=== PATIENT | female | born 1980 | race Caucasian/White ===

== ENCOUNTER 2021-09-01 12:08 | Outpatient (CLI) | payer MEDICAID, SELFPAY ==
[2021-09-01 12:27] VITALS: BP 103/71; PULSE 70; RESP 16; TEMP 37; O2SAT 97; BMI 36.6
[2021-09-01] MEDS: 0.9% Saline Lock 10 ML Syringe IV (12:29)
[2021-09-01 13:28] VITALS: BP 102/71; PULSE 55; RESP 16; TEMP 36.9; O2SAT 97
[2021-09-01 14:23] VITALS: BP 115/76; PULSE 54; RESP 16; TEMP 36.8; O2SAT 97
== END 2021-09-01 14:34 | disposition home or self-care (01) ==
LOC: MS3OUT 12:08 → MS3 12:09
PROVIDERS: Referring Provider Nurse Practitioner Acute Care; Visit Provider Nurse Practitioner Acute Care
DX: Z23 Encounter for immunization (principal); U07.1 COVID-19
CPT/HCPCS: J7050; M0245; Q0245; A4216